=== PATIENT | female | born 1960 | race African-American/Black ===

== ENCOUNTER 2016-12-23 00:47 | Emergency (ER) | payer OTHER ==
[~2016-12-23] VITALS: Ht 165.1 cm; Wt 60.0 kg
[~2016-12-23 00:47] MED LIST: ALBU6.7H INH; ERGO50000 PO; LOVA40TA PO
[2016-12-23 00:57] VITALS: BP 119/82; PULSE 73; RESP 16; TEMP 97.9; O2SAT 100
[2016-12-23 02:52] VITALS: BP 111/75; PULSE 75; RESP 16; O2SAT 100
[2016-12-23] MEDS ORDERED: SODIUM CHLOR 0.9% 1000 ML INJ 1,000 ML IV ONE (03:30)
--- NOTE | 2016-12-23 04:02 | RADRPT ---
EXAM DATE/TIME: 12/23/2016 03:34 [facility] COMPARISON: No previous studies available for comparison. INDICATIONS : Altered mental status. RADIATION DOSE: 56.77 CTDIvol (mGy) MEDICAL HISTORY : Hypertension. Chronic obstructive pulmonary disease. Asthma SURGICAL HISTORY : Gastric sleeve ENCOUNTER: Initial ACUITY: 1 day PAIN SCALE: 0/10 LOCATION: cranial TECHNIQUE: Multiple contiguous axial images were obtained of the head. Using automated exposure control and adj ustment of the mA and/or kV according to patient size, radiation dose was kept as low as reasonably a chievable to obtain optimal diagnostic quality images. FINDINGS: CEREBRUM: The ventricles are normal for age. No evidence of midline shift, mass lesion, hemorrhage or acute in farction. No extra-axial fluid collections are seen. POSTERIOR FOSSA: The cerebellum and brainstem are intact. The 4th ventricle is midline. The cerebellopontine angle i s unremarkable. EXTRACRANIAL: The visualized portion of the orbits is intact. SKULL: The calvaria is intact. No evidence of skull fracture. CONCLUSION: Normal examination. Tai La MD on December 23, 2016 at 3:59 Board Certified Radiologist. This report was verified electronically.
[2016-12-23 05:18] LABS: AUTOMATED NEUTROPHIL # 5.1 TH/MM3 (1.8-7.7); BASOPHIL % 0.4 % (0.0-2.0); EOSINOPHIL % 0.6 % (0.0-4.0); HEMATOCRIT 35.8 % (35.0-46.0); HEMO FLAGS DIFF FINAL; LYMPH % 19.6 % (9.0-44.0); LYMPHOCYTE # 1.3 TH/MM3 (1.0-4.8); MEAN CELL VOLUME 91.7 FL (80.0-100.0); MEAN CORPUSCULAR HEMOGLOBIN 30.8 PG (27.0-34.0); MEAN CORPUSCULAR HGB CONC 33.6 % (32.0-36.0); MONO % 4.4 % (0.0-8.0); PLATELET COUNT 264 TH/MM3 (150-450); RED BLOOD COUNT 3.91 MIL/MM3 (4.00-5.30); RED CELL DISTRIBUTION WIDTH 14.4 % (11.6-17.2); WHITE BLOOD COUNT 6.8 TH/MM3 (4.0-11.0)
[2016-12-23 05:21] LABS: BLOOD, URINE NEG (NEG); GLUCOSE,URINE NEG (NEG); KETONE, URINE NEG (NEG); NITRITE,URINE NEG (NEG); PH, URINE 5.5 (5.0-8.5); SQUAMOUS EPITHELIAL CELL URINE <1 /hpf (0-5); URINE COLOR YELLOW (YELLW/STRAW)
[2016-12-23 05:28] LABS: AMPHETAMINE, URINE NEG (NEG); BARBITURATES, URINE NEG (NEG); COCAINE, URINE NEG (NEG)
[2016-12-23 05:34] LABS: COMMENT (UR) CULT NOT INDICATED; CULTURE IF INDICATED CULT NOT INDICATED
[2016-12-23 05:59] LABS: ALKALINE PHOSPHATASE 78 U/L (45-117); ALT (GPT) 21 U/L (10-53); ANION GAP 8 MEQ/L (5-15); AST (GOT) 33 U/L (15-37); BICARBONATE 24.5 MEQ/L (21.0-32.0); BLOOD UREA NITROGEN 11 MG/DL (7-18); CHLORIDE 111 MEQ/L (98-107); GLOMERULAR FILTRATION RATE 84 ML/MIN (>89); SODIUM (NA) 143 MEQ/L (136-145); TOTAL BILIRUBIN ADULT 0.3 MG/DL (0.2-1.0)
[2016-12-23 06:00] LABS: POTASSIUM 4.7 MEQ/L (3.5-5.1)
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
[2016-12-23 07:27] VITALS: BP 134/67
--- NOTE | 2016-12-23 18:50 | EKG ---
Date Performed: 12/23/2016 Time Performed: 05:23:11 PTAGE: 56 years EKG: Sinus rhythm Consider antroseptal myocardial infarction-age indeterminate ABNORMAL ECG PREVIOUS TRACING : 05/08/2015 14.26.38 DOCTOR: Martin Shelton Interpretating Date/Time 12/23/2016 18:49:21
== END 2016-12-23 07:31 | disposition home or self-care (01) ==
LOC: NEPC 00:47
DX: R41.82 Altered mental status, unspecified (principal); Z72.0 Tobacco use; I10 Essential (primary) hypertension; J44.9 Chronic obstructive pulmonary disease, unspecified; E78.00 Pure hypercholesterolemia, unspecified; R94.31 Abnormal electrocardiogram [ECG] [EKG]
CPT/HCPCS: 70450; 80053; 80307; 81001; 85025; 93005; 96360; 99285; J7030; 80320

== ENCOUNTER → 2017-01-12 | Outpatient (CLI) | payer OTHER ==
[~2017-01-12] MED LIST changes: -ALBU6.7H INH; +BUPR150CR PO; +ERGO1CAP10 PO; -ERGO50000 PO; +LOVA20TA PO; -LOVA40TA PO; +VENTAER INH
--- NOTE | 2017-01-12 18:22 | MG ---
cc: CASSANDRA CHURCH MD Lab No: [id number] Date: 01/12/17 Age: 56 Sex: F Race: 1960 A 56 year old female history of syncope, shaking. Increased fast frequencies noted in a generalized fashion. Posterior rhythm demonstrates 8-9 Hz activity 20-40 microvolts. Attenuation background slowing with transition into drowsy state. There is high-frequency myogenic type clusters occurring. Appearance of probable K complexes. Tiny little sharp transient frontal region epoch 157. Reasonable driving photic stimulation. Single lead EKG showing sinus rhythm. INTERPRETATION Relatively normal awake sleep EEG with significant amount of fast frequencies likely related to psychotropic medication. no active seizures. Of note, bupropion could lower seizure threshold. Clinical correlation. Cassandra Church MD MG/SA /5:17 PM /6:17 PM
== END ==
LOC: HEEG 06:27
PROVIDERS: ATTEND Specialist
DX: R55 Syncope and collapse (principal); R25.1 Tremor, unspecified
CPT/HCPCS: 95819

== ENCOUNTER 2017-01-14 17:24 | Emergency (ER) | payer OTHER ==
[2017-01-14 17:37] VITALS: BP 112/63; PULSE 75; RESP 18; TEMP 97.9; O2SAT 99
[2017-01-14] MEDS ORDERED: BUPR150CR PO (17:50)
[2017-01-14] MEDS ORDERED: ERGO1CAP10 PO (17:50)
[2017-01-14] MEDS ORDERED: VENTAER INH (17:50)
[2017-01-14] MEDS ORDERED: LOVA20TA PO (17:50)
--- NOTE | 2017-01-14 18:22 | PD ---
HPI Chief Complaint: Syncope/Near-Syncope Time Seen by Provider: 17:38 Travel History International Travel<30 days: No Contact w/Intl Traveler<30days: No Traveled to known affect area: No History of Present Illness HPI This 56-year-old female presents with complaint that she had a syncopal episode today. Works at a [employer]. She says she went to the bathroom there and her hands started shaking and she believes she blacked out sitting on the toilet at that time. She woke up and she was still on the toilet but she felt she lost track of time and she seemed a little bit confused. She is now not confused anymore. She has had 2 prior episodes like this. We'll the first one was about 6 months ago and part of a dose. Then she had an episode earlier in the month. She has been seeing her primary care doctor Dr. Sloan as well as a neurologist Dr. Christianson. 2 days ago she had a sleep deprived EEG which was read as negative. She is on Wellbutrin for smoking sensation. She says she was not on the Wellbutrin at the time of her first episode. She has had fairly extensive workup. There is a CT scan in the chart of the brain which is negative and she says she's had an MRI which was negative. She does not have any numbness or tingling. PFSH Past Medical History Asthma: Yes Autoimmune Disease: No Blood Disorders: No Anxiety: No Depression: No Cancer: No Cardiovascular Problems: Yes High Cholesterol: Yes COPD: Yes Cerebrovascular Accident: No Diabetes: No Diminished Hearing: No Endocrine: No Gastrointestinal Disorders: No Glaucoma: Yes Genitourinary: No Headaches: No Hypertension: Yes Immune Disorder: No Implanted Vascular Access Dvce: No Musculoskeletal: No Neurologic: No Psychiatric: No Reproductive: No Respiratory: Yes Immunizations Current: No Migraines: No Seizures: No Sleep Apnea: No Thyroid Disease: No PNEUMOCCOCAL Vaccine (Year): 1 ?: Not Menopausal: Yes Past Surgical History Abdominal Surgery: Yes (GASTRIC SLEEVE 09/2014) AICD: No Arteriovenous Shunt: No Cardiac Surgery: No Ear Surgery: No Endocrine Surgery: No Eye Surgery: No Genitourinary Surgery: No Gynecologic Surgery: No Insulin Pump: No Joint Replacement: No Neurologic Surgery: No Oral Surgery: No Pacemaker: No Thoracic Surgery: No Other Surgery: Yes (BRACHIALPLASTY) Social History Alcohol Use: Yes ("OCCASIONALLY") Tobacco Use: No (QUIT) Substance Use: No Allergies-Medications (Allergen,Severity, Reaction): Coded Allergies: No Known Allergies (Verified , 01/14/17) Reported Meds & Prescriptions Reported Meds & Active Scripts Active Reported Ventolin Hfa 18 GM Inh (Albuterol Sulfate) 90 Mcg/Act Aer 1 Puff INH Q4H PRN Vitamin D (Ergocalciferol) 50,000 Unit Cap 50,000 Units PO Q7D Wellbutrin SR 12 HR (Bupropion HCl) 150 Mg Tab 150 Mg PO HS Lovastatin 20 Mg Tab 30 PO HS Review of Systems General / Constitutional: No: Fever, Chills Eyes: No: Diploplia, Blurred Vision HENT: No: Headaches, Vertigo Cardiovascular: No: Chest Pain or Discomfort, Palpitations Respiratory: No: Cough, Shortness of Breath Gastrointestinal: No: Vomiting, Diarrhea Genitourinary: No: Urgency, Frequency Musculoskeletal: No: Myalgias, Arthralgias Skin: No Itching, No Dryness Neurologic: No: Weakness Physical Exam Narrative GENERAL: Well developed female SKIN: Focused skin assessment warm/dry. HEAD: Atraumatic. Normocephalic. EYES: Pupils equal and round. No scleral icterus. No injection or drainage. ENT: No nasal bleeding or discharge. Mucous membranes pink and moist. NECK: Trachea midline. No JVD. CARDIOVASCULAR: Regular rate and rhythm. No murmur appreciated. RESPIRATORY: No accessory muscle use. Clear to auscultation. Breath sounds equal bilaterally. GASTROINTESTINAL: Abdomen soft, non-tender, nondistended. Hepatic and splenic margins not palpable. MUSCULOSKELETAL: No obvious deformities. No clubbing. No cyanosis. No edema. NEUROLOGICAL: Awake and alert. No obvious cranial nerve deficits. Motor grossly within normal limits. Normal speech. PSYCHIATRIC: Appropriate mood and affect; insight and judgment normal. Data Data Last Documented VS Vital Signs Date Time Temp Pulse Resp B/P Pulse Ox O2 Delivery O2 Flow Rate FiO2 01/14/17 19:26 62 20 102/57 98 01/14/17 17:37 97.9 Orders Electrocardiogram (01/14/17 ) Complete Blood Count With Diff (01/14/17 18:18) Basic Metabolic Panel (Bmp) (01/14/17 18:18) Urinalysis - C+S If Indicated (01/14/17 18:18) Labs Laboratory Tests Test 01/14/17 01/14/17 01/14/17 18:10 18:30 19:20 Urine Collection Type CLEAN CATCH Urine Color YELLOW Urine Turbidity CLEAR Urine pH 5.5 Urine Specific [place] 1.009 Urine Protein NEG mg/dL Urine Glucose (UA) NEG mg/dL Urine Ketones NEG mg/dL Urine Occult Blood NEG Urine Nitrite NEG Urine Bilirubin NEG Urine Leukocyte Esterase NEG Urine WBC 0-2 /hpf Urine Squamous Epithelial 6-8 /hpf Cells Microscopic Urinalysis Comment CULT NOT INDICATED Urine Collection Time 18:10 White Blood Count 6.4 TH/MM3 Red Blood Count 4.16 MIL/MM3 Hemoglobin 12.5 GM/DL Hematocrit 38.5 % Mean Corpuscular Volume 92.5 FL Mean Corpuscular Hemoglobin 30.0 PG Mean Corpuscular Hemoglobin 32.4 % Concent Red Cell Distribution Width 14.9 % Platelet Count 259 TH/MM3 Mean Platelet Volume 7.6 FL Neutrophils (%) (Auto) 61.3 % Lymphocytes (%) (Auto) 27.1 % Monocytes (%) (Auto) 8.0 % Eosinophils (%) (Auto) 2.5 % Basophils (%) (Auto) 1.1 % Neutrophils # (Auto) 3.9 TH/MM3 Lymphocytes # (Auto) 1.7 TH/MM3 Monocytes # (Auto) 0.5 TH/MM3 Eosinophils # (Auto) 0.2 TH/MM3 Basophils # (Auto) 0.1 TH/MM3 CBC Comment DIFF FINAL Differential Comment Sodium Level 144 MEQ/L Potassium Level 4.3 MEQ/L Chloride Level 109 MEQ/L Carbon Dioxide Level 27.4 MEQ/L Anion Gap 8 MEQ/L Blood Urea Nitrogen 20 MG/DL Creatinine 1.20 MG/DL Estimat Glomerular Filtration 56 ML/MIN Rate Random Glucose 134 MG/DL Calcium Level 9.0 MG/DL [facility] Medical Decision Making Medical Screen Exam Complete: Yes Emergency Medical Condition: Yes Medical Record Reviewed: Yes Differential Diagnosis Differential includes syncope, seizure, dysrhythmia Narrative Course EKG shows normal sinus rhythm. Lab work is unremarkable. Patient has previously had CT of the brain and she leaves MRI. Any she has been done recently and was etiology for these episodes has not been determined. I have offered admission but the patient does not wish to be admitted at this time. She has physicians Dr. Sloan and Dr. Christianson. She is stable for discharge. She is on Wellbutrin and certainly seizures are in the differential. I recommended that she might want to come off the Wellbutrin though she should check with Dr. Sloan regarding this Diagnosis Primary Impression: Syncope Disposition: 01 DISCHARGE HOME Condition: Stable Ryan Ruiz MD Jan 14, 2017 18:22
[2017-01-14 18:30] LABS: BLOOD, URINE NEG (NEG); GLUCOSE,URINE NEG (NEG); KETONE, URINE NEG (NEG); NITRITE,URINE NEG (NEG); PH, URINE 5.5 (5.0-8.5)
[2017-01-14 18:33] LABS: METHOD OF COLLECTION CLEAN CATCH
[2017-01-14 18:34] LABS: COMMENT (UR) CULT NOT INDICATED; CULTURE IF INDICATED CULT NOT INDICATED; URINE COLOR YELLOW (YELLW/STRAW); WBC, URINE 0-2 /hpf (0-5)
[2017-01-14 18:47] LABS: AUTOMATED NEUTROPHIL # 3.9 TH/MM3 (1.8-7.7); BASOPHIL # 0.1 TH/MM3 (0-0.2); BASOPHIL % 1.1 % (0.0-2.0); EOSINOPHIL # 0.2 TH/MM3 (0-0.4); EOSINOPHIL % 2.5 % (0.0-4.0); HEMATOCRIT 38.5 % (35.0-46.0); HEMO FLAGS DIFF FINAL; LYMPH % 27.1 % (9.0-44.0); LYMPHOCYTE # 1.7 TH/MM3 (1.0-4.8); MEAN CELL VOLUME 92.5 FL (80.0-100.0); MEAN CORPUSCULAR HGB CONC 32.4 % (32.0-36.0); NEUT % 61.3 % (16.0-70.0); PLATELET COUNT 259 TH/MM3 (150-450); RED BLOOD COUNT 4.16 MIL/MM3 (4.00-5.30); RED CELL DISTRIBUTION WIDTH 14.9 % (11.6-17.2); WHITE BLOOD COUNT 6.4 TH/MM3 (4.0-11.0)
[2017-01-14 19:26] VITALS: BP 102/57; PULSE 62; RESP 20; O2SAT 98
[2017-01-14 19:36] LABS: BICARBONATE 27.4 MEQ/L (21.0-32.0)
[2017-01-14 19:44] LABS: POTASSIUM 4.3 MEQ/L (3.5-5.1)
[2017-01-14 20:21] VITALS: BP 102/57
--- NOTE | 2017-01-16 12:52 | EKG ---
Date Performed: 01/14/2017 Time Performed: 18:22:48 PTAGE: 56 years EKG: Possible ectopic atrial rhythm Borderline ECG PREVIOUS TRACING : 12/23/2016 05.23 Compared to prior tracing no significant change DOCTOR: Dante George Interpretating Date/Time 01/16/2017 12:50:49
== END 2017-01-14 20:24 | disposition home or self-care (01) ==
LOC: PHED 17:24
DX: R55 Syncope and collapse (principal); R94.31 Abnormal electrocardiogram [ECG] [EKG]; J45.909 Unspecified asthma, uncomplicated; E78.00 Pure hypercholesterolemia, unspecified; J44.9 Chronic obstructive pulmonary disease, unspecified; I10 Essential (primary) hypertension; Z87.891 Personal history of nicotine dependence
CPT/HCPCS: 80048; 81001; 85025; 93005

== ENCOUNTER 2017-10-17 21:21 | Emergency (ER) | payer OTHER ==
[~2017-10-17] VITALS: Ht 165.1 cm; Wt 64.0 kg
[2017-10-17 21:35] VITALS: BP 135/86; PULSE 90; RESP 22; TEMP 98.1
[2017-10-17] MEDS ORDERED: SODIUM CHLOR 0.9% 1000 ML INJ 1,000 ML IV ONE (21:45)
[2017-10-17] MEDS ORDERED: MECLIZINE HCL 25 MG TAB PO ONE (21:45)
[2017-10-17] MEDS ORDERED: ONDANSETRON HCL 4 MG/2 ML VIAL IVP ONE (21:45)
[2017-10-17] MEDS ORDERED: SODIUM CHLORIDE 0.9% FLUSH 10 ML FLUSH IVF PRN (21:45)
[2017-10-17] MEDS ORDERED: VITA1000 PO (21:46)
[2017-10-17] MEDS ORDERED: MULTTAB67 PO (21:46)
[2017-10-17] MEDS ORDERED: TRAZ50TA12 PO (21:46)
--- NOTE | 2017-10-17 21:52 | PD ---
HPI Chief Complaint: Syncope/Near-Syncope Time Seen by Provider: 21:45 Travel History International Travel<30 days: No Contact w/Intl Traveler<30days: No Traveled to known affect area: No History of Present Illness HPI 57-year-old female with PMH of HTN, COPD, "fainting spells" presents to the ED via EMS after syncopal episode at home today. Patient states that she was attempting to go to the bathroom, felt dizzy, and "passed out." She is unsure if she hit her head. She is unsure how long she was unconscious. On presentation she complains of feeling as if the room was spinning. She also complains of posterior neck pain and bilateral ankle pain. She denies headache , vision changes, chest pain, palpitations, shortness of breath, abdominal pain , nausea or vomiting. She states that she had a few episodes of watery diarrhea today. She denies melena, hematochezia, BRBPR. She denies dysuria, low back pain, weakness of the extremities. She is followed by a church official and a neurologist for "my fainting spells." She is unsure of the name of her doctors. PFSH Past Medical History Asthma: Yes Autoimmune Disease: No Blood Disorders: No Anxiety: No Depression: No Cancer: No Cardiovascular Problems: Yes High Cholesterol: Yes COPD: Yes Cerebrovascular Accident: No Diabetes: No Diminished Hearing: No Endocrine: No Gastrointestinal Disorders: No Glaucoma: Yes Genitourinary: No Headaches: No Hypertension: Yes Immune Disorder: No Implanted Vascular Access Dvce: No Musculoskeletal: No Neurologic: No Psychiatric: No Reproductive: No Respiratory: Yes Immunizations Current: No Migraines: No Seizures: No Sleep Apnea: No Thyroid Disease: No PNEUMOCCOCAL Vaccine (Year): 1 Menopausal: Yes Past Surgical History Abdominal Surgery: Yes (GASTRIC SLEEVE 09/2014) AICD: No Arteriovenous Shunt: No Cardiac Surgery: No Ear Surgery: No Endocrine Surgery: No Eye Surgery: No Genitourinary Surgery: No Gynecologic Surgery: No Insulin Pump: No Joint Replacement: No Neurologic Surgery: No Oral Surgery: No Pacemaker: No Thoracic Surgery: No Other Surgery: Yes (BRACHIALPLASTY) Social History Alcohol Use: Yes ("OCCASIONALLY") Tobacco Use: No (QUIT) Substance Use: No Allergies-Medications (Allergen,Severity, Reaction): Coded Allergies: No Known Allergies (Verified Adverse Reaction, Unknown, 10/17/17) Reported Meds & Prescriptions Reported Meds & Active Scripts Active Reported Vitamin D-1000 (Cholecalciferol) 1,000 Unit Tab 1,000 Units PO WEEKLY Multiple Vitamin 1 Tab 1 Tab PO DAILY Trazodone (Trazodone HCl) 50 Mg Tab 50 Mg PO HS Ventolin Hfa 18 GM Inh (Albuterol Sulfate) 90 Mcg/Act Aer 1 Puff INH Q4H PRN Lovastatin 20 Mg Tab 30 PO HS Review of Systems Except as stated in HPI: all other systems reviewed are Neg Physical Exam Narrative GENERAL: Well-nourished, well-developed female in no acute distress. Lying on her back, wearing a c-collar. SKIN: Warm and dry. Thorough evaluation reveals no edema, ecchymosis, abrasion , or laceration of the skin. HEAD: Normocephalic. Atraumatic. No raccoon eyes or cash sign. No tenderness to palpation of the skull. No bony step-offs. No malocclusion of the teeth. EYES: No scleral icterus. No injection or drainage. PERRLA. EOMI. Eyeglasses in place. ENT: Pearly tyler tympanic membrane is bilaterally. Nasal mucosa is moist. Oropharynx without erythema, edema or exudate. NECK: Supple, trachea midline. No JVD or lymphadenopathy. C-collar in place pending radiological exam. CARDIOVASCULAR: Regular rate and rhythm without murmurs, gallops, or rubs. 2+ DP and radial pulses bilaterally. RESPIRATORY: Breath sounds clear and equal bilaterally. No accessory muscle use. GASTROINTESTINAL: Abdomen soft, non-tender, nondistended. + Bowel sounds MUSCULOSKELETAL: No cyanosis, or edema. Positive tenderness to palpation of the bilateral ankles. No tenderness to palpation or limitations to range of motion of the joints of the upper and lower extremities bilaterally. NEUROLOGICAL: Awake and alert. Cranial nerves II through XII intact. Motor and sensory grossly within normal limits. 5/5 muscle strength in all muscle groups. Normal speech. BACK: Nontender without obvious deformity. No CVA tenderness. No midline tenderness. Data Data Last Documented VS Vital Signs Date Time Temp Pulse Resp B/P (MAP) Pulse Ox O2 Delivery O2 Flow Rate FiO2 10/17/17 22:04 96 Room Air 10/17/17 21:35 98.1 90 22 135/86 (102) Orders Orders Electrocardiogram (10/17/17 21:45) Complete Blood Count With Diff (10/17/17 21:45) Comprehensive Metabolic Panel (10/17/17 21:45) Magnesium (Mg) (10/17/17 21:45) Ckmb (Isoenzyme) Profile (10/17/17 21:45) Troponin I (10/17/17 21:45) Act Partial Throm Time (Ptt) (10/17/17 21:45) Prothrombin Time / Inr (Pt) (10/17/17 21:45) Urinalysis - C+S If Indicated (10/17/17 21:45) Chest, Single Ap (10/17/17 21:45) Ct Brain W/O Iv Contrast(Rout) (10/17/17 21:45) Ct Cerv Spine W/O Contrast (10/17/17 21:45) Ecg Monitoring (10/17/17 21:45) Iv Access Insert/Monitor (10/17/17 21:45) Oximetry (10/17/17 21:45) Meclizine (Antivert) (10/17/17 21:45) Ondansetron Inj (Zofran Inj) (10/17/17 21:45) Sodium Chloride 0.9% Flush (Ns Flush) (10/17/17 21:45) Sodium Chlor 0.9% 1000 Ml Inj (Ns 1000 M (10/17/17 21:45) Ankle, Complete ([id number]) (10/17/17 21:45) Ice/Cold Pack (10/17/17 21:45) Ankle, Complete ([id number]) (10/17/17 21:45) Ice/Cold Pack (10/17/17 21:45) Labs Laboratory Tests Test 10/17/17 22:30 White Blood Count 10.9 TH/MM3 Red Blood Count 4.34 MIL/MM3 Hemoglobin 13.5 GM/DL Hematocrit 40.7 % Mean Corpuscular Volume 93.8 FL Mean Corpuscular Hemoglobin 31.1 PG Mean Corpuscular Hemoglobin Concent 33.1 % Red Cell Distribution Width 14.8 % Platelet Count 278 TH/MM3 Mean Platelet Volume 7.9 FL Neutrophils (%) (Auto) 89.9 % Lymphocytes (%) (Auto) 4.6 % Monocytes (%) (Auto) 4.6 % Eosinophils (%) (Auto) 0.4 % Basophils (%) (Auto) 0.5 % Neutrophils # (Auto) 9.8 TH/MM3 Lymphocytes # (Auto) 0.5 TH/MM3 Monocytes # (Auto) 0.5 TH/MM3 Eosinophils # (Auto) 0.0 TH/MM3 Basophils # (Auto) 0.1 TH/MM3 CBC Comment DIFF FINAL Differential Comment MDM Medical Decision Making Medical Screen Exam Complete: Yes Emergency Medical Condition: Yes Differential Diagnosis Dehydration versus hypotension versus syncope versus contusion versus less likely ICH versus subluxation versus ruptured disc versus other Narrative Course A 7-year-old female presents to the ED after syncopal episode just before arrival. Patient states this been feeling dizzy today and having loose bowel movements. Vitals reviewed. On exam the patient does not appear postictal. She is able to give a full history. She does have some tenderness to palpation of the bilateral ankles and complains of neck pain and dizziness. C-collar remains in place pending radiological evaluation. Patient was administered 50 mg of meclizine and 4 mg of Zofran. Workup ordered and pending. Patient signed out to Dr. Sanders at end of shift. Please see his note for disposition. Marlena Rojas Oct 17, 2017 21:52
[2017-10-17 22:04] VITALS: O2SAT 96
[2017-10-17 22:58] LABS: AUTOMATED NEUTROPHIL # 9.8 TH/MM3 (1.8-7.7); BASOPHIL # 0.1 TH/MM3 (0-0.2); BASOPHIL % 0.5 % (0.0-2.0); EOSINOPHIL % 0.4 % (0.0-4.0); HEMATOCRIT 40.7 % (35.0-46.0); HEMOGLOBIN 13.5 GM/DL (11.6-15.3); LYMPH % 4.6 % (9.0-44.0); LYMPHOCYTE # 0.5 TH/MM3 (1.0-4.8); MEAN CELL VOLUME 93.8 FL (80.0-100.0); MEAN CORPUSCULAR HEMOGLOBIN 31.1 PG (27.0-34.0); MEAN CORPUSCULAR HGB CONC 33.1 % (32.0-36.0); MEAN PLATELET VOLUME 7.9 FL (7.0-11.0); MONO % 4.6 % (0.0-8.0); MONOCYTE # 0.5 TH/MM3 (0-0.9); NEUT % 89.9 % (16.0-70.0); PLATELET COUNT 278 TH/MM3 (150-450); RED BLOOD COUNT 4.34 MIL/MM3 (4.00-5.30); RED CELL DISTRIBUTION WIDTH 14.8 % (11.6-17.2); WHITE BLOOD COUNT 10.9 TH/MM3 (4.0-11.0)
--- NOTE | 2017-10-17 23:15 | RADRPT ---
EXAM DATE/TIME: 10/17/2017 22:53 [facility] COMPARISON: CHEST SINGLE AP, June 03, 2014, 1:13. INDICATIONS : Sycopal episode today MEDICAL HISTORY : Hypertension. Chronic obstructive pulmonary disease. Asthma SURGICAL HISTORY : None. ENCOUNTER: Initial ACUITY: 1 day PAIN SCORE: 0/10 LOCATION: Bilateral chest FINDINGS: A single view of the chest demonstrates the lungs to be symmetrically aerated without evidence of mas s, infiltrate or effusion. The cardiomediastinal contours are unremarkable. Osseous structures are intact. CONCLUSION: 1. No acute cardiopulmonary disease. Yogesh Garcia MD on October 17, 2017 at 23:14 Board Certified Radiologist. This report was verified electronically.
[2017-10-17 23:17] LABS: ALBUMIN 3.4 GM/DL (3.4-5.0); ALT (GPT) 29 U/L (10-53); AST (GOT) 28 U/L (15-37); BICARBONATE 22.7 MEQ/L (21.0-32.0); BLOOD UREA NITROGEN 20 MG/DL (7-18); CALCIUM 8.5 MG/DL (8.5-10.1); CHLORIDE 114 MEQ/L (98-107); CREATININE 1.01 MG/DL (0.50-1.00); GLOMERULAR FILTRATION RATE 68 ML/MIN (>89); GLUCOSE,RANDOM 107 MG/DL (74-106); MAGNESIUM 1.8 MG/DL (1.5-2.5); SODIUM (NA) 143 MEQ/L (136-145)
--- NOTE | 2017-10-17 23:17 | RADRPT ---
EXAM DATE/TIME: 10/17/2017 22:55 [facility] COMPARISON: ANKLE RIGHT COMPLETE ([id number]), October 17, 2017, 22:57. INDICATIONS : Left ankle pain post fall today MEDICAL HISTORY : None. SURGICAL HISTORY : None. ENCOUNTER: Initial ACUITY: 1 day PAIN SCORE: 10/10 LOCATION: Left entire ankle FINDINGS: Calcaneal spur is present at the attachment site of the plantar aponeurosis and Achilles tendon. Ther e are tiny bony densities dorsal to the talonavicular joint possibly chronic, however a tiny avulsion is difficult to exclude. CONCLUSION: Chronic hypertrophic changes versus small fractures of the dorsal aspect of the talonavicular joint. Rodney Romero MD on October 17, 2017 at 23:14 Board Certified Radiologist. This report was verified electronically.
--- NOTE | 2017-10-17 23:17 | RADRPT ---
EXAM DATE/TIME: 10/17/2017 22:53 [facility] COMPARISON: CT BRAIN W/O CONTRAST, December 23, 2016, 3:34. INDICATIONS : Trauma; fall. RADIATION DOSE: 56.35 CTDIvol (mGy) MEDICAL HISTORY : Cardiovascular disease. Hypertension. SURGICAL HISTORY : None. ENCOUNTER: Initial ACUITY: 1 day PAIN SCALE: 5/10 LOCATION: cranial TECHNIQUE: Multiple contiguous axial images were obtained of the head. Using automated exposure control and adj ustment of the mA and/or kV according to patient size, radiation dose was kept as low as reasonably a chievable to obtain optimal diagnostic quality images. DICOM format image data is available electro nically for review and comparison. FINDINGS: CEREBRUM: The ventricles are normal for age. No evidence of midline shift, mass lesion, hemorrhage or acute in farction. No extra-axial fluid collections are seen. POSTERIOR FOSSA: The cerebellum and brainstem are intact. The 4th ventricle is midline. The cerebellopontine angle i s unremarkable. EXTRACRANIAL: The visualized portion of the orbits is intact. SKULL: The calvaria is intact. No evidence of skull fracture. CONCLUSION: 1. No acute intracranial abnormality. Yogesh Garcia MD on October 17, 2017 at 23:14 Board Certified Radiologist. This report was verified electronically.
--- NOTE | 2017-10-17 23:18 | RADRPT ---
EXAM DATE/TIME: 10/17/2017 22:57 [facility] COMPARISON: No previous studies available for comparison. INDICATIONS : Right ankle pain post fall today MEDICAL HISTORY : None. SURGICAL HISTORY : None. ENCOUNTER: Initial ACUITY: 1 day PAIN SCORE: 10/10 LOCATION: Right entire ankle FINDINGS: No definite fractures, or dislocations are identified. No definite lytic or sclerotic lesion is seen . The joint spaces are well maintained. Calcaneal spur is present at the attachment site of the plan tar aponeurosis and Achilles tendon. CONCLUSION: Chronic changes and no evidence for acute fracture. Rodney Romero MD on October 17, 2017 at 23:16 Board Certified Radiologist. This report was verified electronically.
[2017-10-17 23:21] LABS: ALKALINE PHOSPHATASE 76 U/L (45-117); TOTAL BILIRUBIN ADULT 0.4 MG/DL (0.2-1.0); TOTAL PROTEIN 7.6 GM/DL (6.4-8.2); TROPONIN I LESS THAN 0.02 NG/ML (0.02-0.05)
--- NOTE | 2017-10-17 23:26 | RADRPT ---
EXAM DATE/TIME: 10/17/2017 22:53 [facility] COMPARISON: No previous studies available for comparison. INDICATIONS : Trauma; fall. RADIATION DOSE: 30.78 CTDIvol (mGy) MEDICAL HISTORY : Cardiovascular disease. Hypertension. SURGICAL HISTORY : None. ENCOUNTER: Initial ACUITY: 1 day PAIN SCALE: 5/10 LOCATION: Bilateral neck TECHNIQUE: Volumetric scanning of the cervical spine was performed. Multiplanar reconstructions in the sagittal, coronal and oblique axial planes were performed. Using automated exposure control and adjustment o f the mA and/or kV according to patient size, radiation dose was kept as low as reasonably achievable to obtain optimal diagnostic quality images. DICOM format image data is available electronically f or review and comparison. FINDINGS: No definite fracture is seen for technique. C2-C3: There is no evidence for any significant compromise to the thecal sac, or the exiting nerve roots. N o appreciable thecal sac stenosis is seen. The neural foramina and lateral recess appear patent bila terally. C3-C4: There is no evidence for any significant compromise to the thecal sac, or the exiting nerve roots. N o appreciable thecal sac stenosis is seen. The neural foramina and lateral recess appear patent bila terally. C4-C5: Slight degenerative changes are seen within the disc space and facets. Slight bulging disc and hypert rophic changes are seen with indentation on the thecal sac and no significant compromise to the theca l sac or the exiting nerve roots. C5-C6: Moderate degenerative changes are seen within the disc space and facets. Slight bulging disc and hype rtrophic changes are seen with indentation on the thecal sac and no significant compromise to the the eve sac or the exiting nerve roots. C6-C7: Significant degenerative changes are seen within the disc space and facets. There is slight neural fo ramina compromise bilaterally due to bulging disc and hypertrophic changes. Slight bulging disc and h ypertrophic changes are seen with indentation on the thecal sac and no significant compromise to the thecal sac. C7-T1: There is no evidence for any significant compromise to the thecal sac, or the exiting nerve roots. N o appreciable thecal sac stenosis is seen. The neural foramina and lateral recess appear patent bila terally. CONCLUSION: Slight neural foramina compromise bilateral C6-C7. KBobby Romero MD on October 17, 2017 at 23:21 Board Certified Radiologist. This report was verified electronically.
--- NOTE | 2017-10-18 00:02 | PD ---
Data Data Last Documented VS Vital Signs Date Time Temp Pulse Resp B/P (MAP) Pulse Ox O2 Delivery O2 Flow Rate FiO2 10/17/17 22:04 96 Room Air 10/17/17 21:35 98.1 90 22 135/86 (102) Orders Orders Electrocardiogram (10/17/17 21:45) Complete Blood Count With Diff (10/17/17 21:45) Comprehensive Metabolic Panel (10/17/17 21:45) Magnesium (Mg) (10/17/17 21:45) Ckmb (Isoenzyme) Profile (10/17/17 21:45) Troponin I (10/17/17 21:45) Act Partial Throm Time (Ptt) (10/17/17 21:45) Prothrombin Time / Inr (Pt) (10/17/17 21:45) Urinalysis - C+S If Indicated (10/17/17 21:45) Chest, Single Ap (10/17/17 21:45) Ct Brain W/O Iv Contrast(Rout) (10/17/17 21:45) Ct Cerv Spine W/O Contrast (10/17/17 21:45) Ecg Monitoring (10/17/17 21:45) Iv Access Insert/Monitor (10/17/17 21:45) Oximetry (10/17/17 21:45) Meclizine (Antivert) (10/17/17 21:45) Ondansetron Inj (Zofran Inj) (10/17/17 21:45) Sodium Chloride 0.9% Flush (Ns Flush) (10/17/17 21:45) Sodium Chlor 0.9% 1000 Ml Inj (Ns 1000 M (10/17/17 21:45) Ankle, Complete ([id number]) (10/17/17 21:45) Ice/Cold Pack (10/17/17 21:45) Ankle, Complete ([id number]) (10/17/17 21:45) Ice/Cold Pack (10/17/17 21:45) CKMB (10/17/17 22:30) CKMB% (10/17/17 22:30) [employer] Request For Service (10/18/17 00:12) Labs Laboratory Tests Test 10/17/17 22:30 White Blood Count 10.9 TH/MM3 Red Blood Count 4.34 MIL/MM3 Hemoglobin 13.5 GM/DL Hematocrit 40.7 % Mean Corpuscular Volume 93.8 FL Mean Corpuscular Hemoglobin 31.1 PG Mean Corpuscular Hemoglobin Concent 33.1 % Red Cell Distribution Width 14.8 % Platelet Count 278 TH/MM3 Mean Platelet Volume 7.9 FL Neutrophils (%) (Auto) 89.9 % Lymphocytes (%) (Auto) 4.6 % Monocytes (%) (Auto) 4.6 % Eosinophils (%) (Auto) 0.4 % Basophils (%) (Auto) 0.5 % Neutrophils # (Auto) 9.8 TH/MM3 Lymphocytes # (Auto) 0.5 TH/MM3 Monocytes # (Auto) 0.5 TH/MM3 Eosinophils # (Auto) 0.0 TH/MM3 Basophils # (Auto) 0.1 TH/MM3 CBC Comment DIFF FINAL Differential Comment Prothrombin Time 10.0 SEC Prothromb Time International Ratio 1.0 RATIO Activated Partial Thromboplast Time 25.8 SEC Blood Urea Nitrogen 20 MG/DL Creatinine 1.01 MG/DL Random Glucose 107 MG/DL Total Protein 7.6 GM/DL Albumin 3.4 GM/DL Calcium Level 8.5 MG/DL Magnesium Level 1.8 MG/DL Alkaline Phosphatase 76 U/L Aspartate Amino Transf (AST/SGOT) 28 U/L Alanine Aminotransferase (ALT/SGPT) 29 U/L Total Bilirubin 0.4 MG/DL Sodium Level 143 MEQ/L Potassium Level 4.1 MEQ/L Chloride Level 114 MEQ/L Carbon Dioxide Level 22.7 MEQ/L Anion Gap 6 MEQ/L Estimat Glomerular Filtration Rate 68 ML/MIN Total Creatine Kinase 123 U/L Creatine Kinase MB 1.0 NG/ML Troponin I LESS THAN 0.02 NG/ML [facility] Supervised Visit with TD: Yes Narrative Course The history, exam, and medical decision-making in the associated mid-level provider note were completed with my assistance. I reviewed and agree with the findings presented. I attest that I had a [id number] encounter with the patient on the same day, and personally performed and documented my assessment and findings in the medical record. *My assessment and Findings: 57 year-old woman history hypertension COPD and fainting spells, syncopal episode today associated with dizziness after using the bathroom. No other concerning associated symptoms. 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 Studies show: CBC unremarkable. CMP remarkable for elevated BUN/creatinine. Troponin negative. Coags unremarkable. Head CT negative C-spine CT negative Right Ankle x-ray negative Left ankle x-ray: Chronic hypertrophic changes versus small fractures on the dorsal aspect of the talo navicular joint. FINAL: Patient is did tenderness really throughout the entire foot and ankle exam, but including the dorsum of the foot on the left. Conservatively, will treat with a supportive boot. Recommend outpatient follow-up with podiatry, and patients primary doctor. Referrals: Brian Garnica DPM 1 week Additional Instruction: Follow-up with your primary doctor in the next one to 2 days. Follow-up with the automotive airconditioning mechanic, Danika Dumont, in the next one to 2 weeks. You can bear weight on the left foot as comfortable. Return to the emergency department for any new or worsening symptoms. He is to medicine as needed for pain. Med/Other Pt SpecificInfo: No Change to Jose Manuel De Anda MD Oct 18, 2017 00:01
--- NOTE | 2017-10-18 03:54 | PD ---
Data Data Last Documented VS Vital Signs Date Time Temp Pulse Resp B/P (MAP) Pulse Ox O2 Delivery O2 Flow Rate FiO2 10/17/17 22:04 96 Room Air 10/17/17 21:35 98.1 90 22 135/86 (102) Orders Orders Electrocardiogram (10/17/17 21:45) Complete Blood Count With Diff (10/17/17 21:45) Comprehensive Metabolic Panel (10/17/17 21:45) Magnesium (Mg) (10/17/17 21:45) Ckmb (Isoenzyme) Profile (10/17/17 21:45) Troponin I (10/17/17 21:45) Act Partial Throm Time (Ptt) (10/17/17 21:45) Prothrombin Time / Inr (Pt) (10/17/17 21:45) Urinalysis - C+S If Indicated (10/17/17 21:45) Chest, Single Ap (10/17/17 21:45) Ct Brain W/O Iv Contrast(Rout) (10/17/17 21:45) Ct Cerv Spine W/O Contrast (10/17/17 21:45) Ecg Monitoring (10/17/17 21:45) Iv Access Insert/Monitor (10/17/17 21:45) Oximetry (10/17/17 21:45) Meclizine (Antivert) (10/17/17 21:45) Ondansetron Inj (Zofran Inj) (10/17/17 21:45) Sodium Chloride 0.9% Flush (Ns Flush) (10/17/17 21:45) Sodium Chlor 0.9% 1000 Ml Inj (Ns 1000 M (10/17/17 21:45) Ankle, Complete ([id number]) (10/17/17 21:45) Ice/Cold Pack (10/17/17 21:45) Ankle, Complete ([id number]) (10/17/17 21:45) Ice/Cold Pack (10/17/17 21:45) CKMB (10/17/17 22:30) CKMB% (10/17/17 22:30) [employer] Request For Service (10/18/17 00:12) Ed Discharge Order (10/18/17 00:15) Labs Laboratory Tests Test 10/17/17 22:30 White Blood Count 10.9 TH/MM3 Red Blood Count 4.34 MIL/MM3 Hemoglobin 13.5 GM/DL Hematocrit 40.7 % Mean Corpuscular Volume 93.8 FL Mean Corpuscular Hemoglobin 31.1 PG Mean Corpuscular Hemoglobin Concent 33.1 % Red Cell Distribution Width 14.8 % Platelet Count 278 TH/MM3 Mean Platelet Volume 7.9 FL Neutrophils (%) (Auto) 89.9 % Lymphocytes (%) (Auto) 4.6 % Monocytes (%) (Auto) 4.6 % Eosinophils (%) (Auto) 0.4 % Basophils (%) (Auto) 0.5 % Neutrophils # (Auto) 9.8 TH/MM3 Lymphocytes # (Auto) 0.5 TH/MM3 Monocytes # (Auto) 0.5 TH/MM3 Eosinophils # (Auto) 0.0 TH/MM3 Basophils # (Auto) 0.1 TH/MM3 CBC Comment DIFF FINAL Differential Comment Prothrombin Time 10.0 SEC Prothromb Time International Ratio 1.0 RATIO Activated Partial Thromboplast Time 25.8 SEC Blood Urea Nitrogen 20 MG/DL Creatinine 1.01 MG/DL Random Glucose 107 MG/DL Total Protein 7.6 GM/DL Albumin 3.4 GM/DL Calcium Level 8.5 MG/DL Magnesium Level 1.8 MG/DL Alkaline Phosphatase 76 U/L Aspartate Amino Transf (AST/SGOT) 28 U/L Alanine Aminotransferase (ALT/SGPT) 29 U/L Total Bilirubin 0.4 MG/DL Sodium Level 143 MEQ/L Potassium Level 4.1 MEQ/L Chloride Level 114 MEQ/L Carbon Dioxide Level 22.7 MEQ/L Anion Gap 6 MEQ/L Estimat Glomerular Filtration Rate 68 ML/MIN Total Creatine Kinase 123 U/L Creatine Kinase MB 1.0 NG/ML Troponin I LESS THAN 0.02 NG/ML [facility] Supervised Visit with TD: Yes Diagnosis Primary Impression: Syncope Referrals: Brian Garnica DPM 1 week Patient Instructions: General Instructions Departure Forms: Tests/Procedures Additional Instruction: Follow-up with your primary doctor in the next one to 2 days. Follow-up with the corporate operations compliance manager, Danika Dumont, in the next one to 2 weeks. You can bear weight on the left foot as comfortable. Return to the emergency department for any new or worsening symptoms. He is to medicine as needed for pain. Disposition: 01 DISCHARGE HOME Jose Manuel Sanders MD Oct 18, 2017 03:54
--- NOTE | 2017-10-18 22:45 | EKG ---
Date Performed: 10/17/2017 Time Performed: 23:24:45 PTAGE: 57 years EKG: Sinus rhythm LOW QRS VOLTAGE IN EXTREMITY LEADS SEPTAL MYOCARDIAL INFARCTION ABNORMAL ECG PREVIOUS TRACING : 01/14/2017 18.22 Compared to prior tracing no significant change DOCTOR: Kane Drake Interpretating Date/Time 10/18/2017 22:45:45
== END 2017-10-18 04:00 | disposition home or self-care (01) ==
LOC: NEPC 21:21
DX: R55 Syncope and collapse (principal); E78.00 Pure hypercholesterolemia, unspecified; J44.9 Chronic obstructive pulmonary disease, unspecified; M54.2 Cervicalgia; M25.571 Pain in right ankle and joints of right foot; M25.572 Pain in left ankle and joints of left foot; Z87.891 Personal history of nicotine dependence
CPT/HCPCS: 70450; 71010; 72125; 73610; 80053; 82550; 82552; 83735; 84484; 85025; 85610; 85730; 93005; 96361; 96374; 99285; J2405; J7030; L2114